=== PATIENT | male | born 1995 | race Two or more races ===

== ENCOUNTER 2020-06-01 09:20 | Outpatient (CLI) | payer MEDICAID ==
[~2020-06-01] VITALS: Ht 185.4 cm; Wt 118.8 kg
[2020-06-01 09:36] VITALS: BP 148/90
--- NOTE | 2020-06-01 10:45 | Consultation ---
DATE OF CONSULTATION: 06/01/2020 GASTROENTEROLOGY CONSULTATION CONSULTING PHYSICIAN: Eduard Cordon MD. CHIEF COMPLAINT: Rectal bleeding. HISTORY OF PRESENT ILLNESS: A 24-year-old patient. His mother was recently diagnosed with colon cancer at age 50. She was diagnosed with possible Hawkins syndrome, so the patient was referred to us for colonoscopy. PAST MEDICAL HISTORY: None. PAST SURGICAL HISTORY: Appendectomy. MEDICATIONS: None. FAMILY HISTORY: Mother diagnosed with Hawkins syndrome at age 50. SOCIAL HISTORY: The patient drinks occasionally. Denies any IV drug abuse or tobacco abuse. ALLERGIES: No known allergies. REVIEW OF SYSTEMS: Positive for abdominal pain, constipation, diarrhea, and some blood in the stool, weight gain. PHYSICAL EXAMINATION: VITAL SIGNS: Temperature 96.6. Vital signs stable. Height is 6 feet 1 inch, weight is 262. HEENT: Normocephalic and atraumatic. Sclerae are anicteric. NECK: Supple. No evidence of obvious lymphadenopathy. CARDIOVASCULAR: Regular rate and rhythm. Plus S1-S2 LUNGS: Clear to auscultation bilaterally. ABDOMEN: Positive bowel sounds. Soft and nontender. No rebound. No guarding. No peritoneal sign. EXTREMITIES: No cyanosis, no clubbing, no edema. ASSESSMENT AND PLAN: A 24-year-old male with mother diagnosed of Hawkins syndrome, now with complaint of change in bowel habit, rectal bleeding, needs colonoscopy. Plan is to schedule when authorization is obtained. Eduard Cordon M.D. DR: IRAIDA JOB#: [id number] CC:
== END 2020-06-01 11:20 | disposition home or self-care (01) ==
LOC: PAN 09:20
DX: K62.5 Hemorrhage of anus and rectum (principal); Z90.89 Acquired absence of other organs; Z80.0 Family history of malignant neoplasm of digestive organs; K59.00 Constipation, unspecified; R19.7 Diarrhea, unspecified; R63.5 Abnormal weight gain
CPT/HCPCS: G0463